=== PATIENT | male | born 1950 | race Two or more races ===

== ENCOUNTER 2023-04-29 08:08 | Inpatient (IN) | payer BC, OTHER ==
[~2023-04-29] VITALS: Ht 172.7 cm; Wt 87.6 kg
[2023-04-29] MEDS ORDERED: GEMF600T90 PO (08:41)
[2023-04-29] MEDS ORDERED: VALS160T2 PO (08:41)
[2023-04-29] MEDS ORDERED: METF-440 PO (08:41)
[2023-04-29] MEDS ORDERED: CEFD300C3 PO (08:41)
[2023-04-29] MEDS ORDERED: AZIT500T4 PO (08:41)
[2023-04-29] MEDS ORDERED: FURO-151 PO (08:41)
[2023-04-29] MEDS ORDERED: METO50TA16 PO (08:41)
[2023-04-29] MEDS ORDERED: ERGO500040 PO (08:41)
[2023-04-29] MEDS ORDERED: AMLO10TA59 PO (08:41)
[2023-04-29] MEDS ORDERED: ASPI81TA31 PO (08:41)
[2023-04-29] MEDS ORDERED: GLIM2TAB31 PO (08:41)
[2023-04-29] MEDS ORDERED: NITROGLYCERIN OINT 1 GM PACKET TP ONE ×2 (08:45→09:11)
[2023-04-29] MEDS ORDERED: FUROSEMIDE 20 MG/2 ML VIAL IVP ONE (08:45)
[2023-04-29] MEDS ORDERED: FUROSEMIDE 40 MG/4 ML VIAL ONE (09:10)
[2023-04-29 09:17] LABS: BASOPHILS # (AUTO) 0.1 K/UL (0.0-0.2); BASOPHILS % (AUTO) 0.9 % (0.0-2.0); EOSINOPHILS # (AUTO) 0.1 K/uL (0.0-0.7); EOSINOPHILS % (AUTO) 1.5 % (0.0-7.0); HEMATOCRIT 30.3 % (36.7-47.1); HEMOGLOBIN 10.4 g/dL (12.5-16.3); LYMPHOCYTES # (AUTO) 0.7 K/uL (0.8-4.8); LYMPHOCYTES % (AUTO) 9.4 % (20.5-51.5); MEAN CORPUSCULAR HEMOGLOBIN 31.6 uug (23.8-33.4); MEAN CORPUSCULAR HGB CONC 34 g/dL (32.5-36.3); MEAN CORPUSCULAR VOLUME 91.9 fL (73.0-96.2); MONOCYTES # (AUTO) 0.7 K/uL (0.1-1.30); MONOCYTES % (AUTO) 9.3 % (0.0-11.0); NEUTROPHILS # (AUTO) 6.1 K/uL (1.8-8.9); NEUTROPHILS % (AUTO) 78.9 % (38.5-71.5); PLATELET COUNT (AUTO) 270 K/uL (152-348); RED CELL DISTRIBUTION WIDTH 14.3 % (12.1-16.2); WHITE BLOOD COUNT (AUTO) 7.7 K/uL (3.6-10.2)
[2023-04-29 09:21] LABS: DIFFERENTIAL COMMENT 1
[2023-04-29 09:49] LABS: CARBON DIOXIDE 26 mmol/L (21-32); CHLORIDE 102 mmol/L (98-107); CREATININE 1.9 mg/dL (0.6-1.3); GLUCOSE 175 mg/dL (74-106); POTASSIUM 4.3 mmol/L (3.5-5.1); SODIUM SERUM 137 mmol/L (136-145); UREA NITROGEN, BLOOD 35 mg/dL (7-18)
[2023-04-29 10:05] LABS: ALANINE AMINOTRANSFERASE 38 U/L (16-63); ALBUMIN 2.7 g/dL (3.4-5.0); ALKALINE PHOSPHATASE 129 U/L (50-136); ASPARTATE AMINOTRANSFERASE 19 U/L (15-37); BILIRUBIN,TOTAL 0.3 mg/dL (0.2-1.0); NT-PRO BNP 8155 pg/mL (0-125); TOTAL PROTEIN, SERUM 7.2 g/dL (6.4-8.2)
[2023-04-29] MEDS ORDERED: hydrALAZINE HCL 20 MG/1 ML VIAL ONE (10:29)
[2023-04-29] MEDS ORDERED: hydrALAZINE HCL 20 MG/1 ML VIAL IV ONE (10:30)
[2023-04-29 10:38] LABS: BILIRUBIN,DIRECT < 0.1 mg/dL (0.0-0.2)
[2023-04-29] MEDS ORDERED: MAGNESIUM HYDROXIDE 30 ML LIQUID UDC PO PRN (11:15)
[2023-04-29] MEDS ORDERED: REMEDY ESSENTIAL ZINC PASTE 113 GM TP PRN (11:15)
[2023-04-29] MEDS ORDERED: ONDANSETRON 4 MG/2 ML VIAL IV PRN (11:15)
[2023-04-29] MEDS ORDERED: ENOXAPARIN SODIUM 40 MG/0.4 ML DISP.SYRIN SQ SCH (11:15)
[2023-04-29] MEDS ORDERED: BUMETANIDE 1 MG/4 ML VIAL IV SCH (11:15)
[2023-04-29] MEDS ORDERED: ACETAMINOPHEN 325 MG TABLET PO PRN (11:15)
[2023-04-29 11:46] LABS: IRON, SERUM 30 ug/dL (50-175)
[2023-04-29] MEDS ORDERED: BUMETANIDE 1 MG/4 ML VIAL ONE (13:03)
[2023-04-29] MEDS ORDERED: METOPROLOL TARTRATE 50 MG TABLET ONE (13:03)
[2023-04-29] MEDS ORDERED: ASPIRIN 81 MG TAB.CHEW ONE (13:03)
[2023-04-29] MEDS ORDERED: ENOXAPARIN SODIUM 40 MG/0.4 ML DISP.SYRIN SQ ONE (13:03)
[2023-04-29] MEDS ORDERED: VALSARTAN 80 MG TABLET ONE (13:04)
[2023-04-29] MEDS ORDERED: AMLODIPINE 5 MG TABLET ONE (13:04)
[2023-04-29] MEDS: ENOXAPARIN SODIUM 40 MG/0.4 ML DISP.SYRIN SQ SCH (13:13)
[2023-04-29] MEDS: BUMETANIDE 1 MG/4 ML VIAL IV SCH ×2 (13:14→20:58)
[2023-04-29] MEDS: METOPROLOL TARTRATE 50 MG TABLET PO SCH ×2 (13:14→17:46)
[2023-04-29] MEDS: VALSARTAN 160 MG TABLET PO SCH (13:14)
[2023-04-29] MEDS: ASPIRIN 81 MG TAB.CHEW PO SCH (13:14)
[2023-04-29] MEDS: AMLODIPINE 10 MG TABLET PO SCH (13:15)
[2023-04-29] MEDS ORDERED: METFORMIN HCL 500 MG TABLET PO SCH (17:00)
[2023-04-29 17:45] VITALS: O2SAT 97
[2023-04-29] MEDS: GEMFIBROZIL 600 MG TABLET PO SCH (17:46)
[2023-04-29 18:13] VITALS: BP 137/74; TEMP 98.7; O2SAT 97
[2023-04-29 18:42] VITALS: BP 137/74; TEMP 98.7; O2SAT 97
[2023-04-29 19:15] VITALS: BP 137/74; TEMP 98.7; O2SAT 97
[2023-04-29 20:33] VITALS: BP 151/66; TEMP 98.9; O2SAT 96
[2023-04-30] VITALS: BP 146/64; TEMP 98.6; O2SAT 93
[2023-04-30 03:41] VITALS: O2SAT 98
[2023-04-30 04:00] VITALS: BP 135/78; TEMP 98.4; O2SAT 95
[2023-04-30 07:27] LABS: BASOPHILS # (AUTO) 0.1 K/UL (0.0-0.2); BASOPHILS % (AUTO) 0.9 % (0.0-2.0); EOSINOPHILS # (AUTO) 0.4 K/uL (0.0-0.7); EOSINOPHILS % (AUTO) 5.5 % (0.0-7.0); HEMATOCRIT 30.4 % (36.7-47.1); HEMOGLOBIN 10.2 g/dL (12.5-16.3); LYMPHOCYTES # (AUTO) 0.8 K/uL (0.8-4.8); LYMPHOCYTES % (AUTO) 11.5 % (20.5-51.5); MEAN CORPUSCULAR HEMOGLOBIN 30.7 uug (23.8-33.4); MEAN CORPUSCULAR HGB CONC 34 g/dL (32.5-36.3); MEAN CORPUSCULAR VOLUME 91.8 fL (73.0-96.2); MONOCYTES # (AUTO) 0.7 K/uL (0.1-1.30); MONOCYTES % (AUTO) 10.1 % (0.0-11.0); NEUTROPHILS # (AUTO) 4.9 K/uL (1.8-8.9); PLATELET COUNT (AUTO) 288 K/uL (152-348); RED BLOOD CELL COUNT(AUTO) 3.31 MIL/uL (4.06-5.63); RED CELL DISTRIBUTION WIDTH 14.3 % (12.1-16.2); WHITE BLOOD COUNT (AUTO) 6.8 K/uL (3.6-10.2)
[2023-04-30 07:35] LABS: DIFFERENTIAL COMMENT 1
[2023-04-30] MEDS ORDERED: CEFEPIME HCL 1 G in IV DEXTROSE 5% 50 ML IV SCH (07:45)
[2023-04-30 07:53] LABS: ALANINE AMINOTRANSFERASE 31 U/L (16-63); ALBUMIN 2.2 g/dL (3.4-5.0); ALKALINE PHOSPHATASE 116 U/L (50-136); ASPARTATE AMINOTRANSFERASE 18 U/L (15-37); BILIRUBIN,TOTAL 0.1 mg/dL (0.2-1.0); CALCIUM 8.9 mg/dL (8.5-10.1); CARBON DIOXIDE 26 mmol/L (21-32); CHLORIDE 102 mmol/L (98-107); CREATININE 1.7 mg/dL (0.6-1.3); GLUCOSE 210 mg/dL (74-106); MAGNESIUM 2.3 mg/dL (1.8-2.4); PHOSPHOROUS 4.2 mg/dL (2.5-4.9); POTASSIUM 4.1 mmol/L (3.5-5.1); SODIUM SERUM 139 mmol/L (136-145); TOTAL PROTEIN, SERUM 6.1 g/dL (6.4-8.2); UREA NITROGEN, BLOOD 38 mg/dL (7-18)
[2023-04-30] MEDS: ASPIRIN 81 MG TAB.CHEW PO SCH (09:01)
[2023-04-30] MEDS: GLIMEPIRIDE 2 MG TABLET PO SCH (09:01)
[2023-04-30] MEDS: GEMFIBROZIL 600 MG TABLET PO SCH ×2 (09:02→16:35)
[2023-04-30] MEDS: AMLODIPINE 10 MG TABLET PO SCH (09:02)
[2023-04-30] MEDS: VALSARTAN 160 MG TABLET PO SCH (09:02)
[2023-04-30] MEDS: METOPROLOL TARTRATE 50 MG TABLET PO SCH ×2 (09:02→16:35)
[2023-04-30] MEDS: ENOXAPARIN SODIUM 40 MG/0.4 ML DISP.SYRIN SQ SCH (09:03)
[2023-04-30] MEDS: CEFEPIME HCL 1 G in IV DEXTROSE 5% 50 ML IV SCH ×2 (09:07→21:02)
[2023-04-30] MEDS: BUMETANIDE 1 MG/4 ML VIAL IV SCH ×2 (09:20→16:35)
[2023-04-30] MEDS ORDERED: VANCOMYCIN IV 1,250 MG in IV DEXTROSE 5% 250 ML IV ONE (10:00)
[2023-04-30 11:25] VITALS: BP 159/70; TEMP 98.8; O2SAT 95
[2023-04-30 16:13] VITALS: BP 165/71; TEMP 98; O2SAT 94
[2023-04-30 20:00] VITALS: BP 160/74; TEMP 98; O2SAT 95
[2023-04-30 20:44] LABS: *BILIRUBIN,URIN NEGATIVE (NEGATIVE); *CLARITY,URINE CLEAR (CLEAR); *COLOR,URINE YELLOW (YELLOW); *KETONES,URINE NEGATIVE (NEGATIVE); *UROBILINOGEN,URINE 0.2 E.U./dl (NORMAL); LEUKOCYTE ESTERASE ,URINE NEGATIVE (NEGATIVE); NITRITE, URINE NEGATIVE (NEGATIVE); PH,URINE 5.5 (5.0-8.0); UGLUCOSE TRACE (NEGATIVE)
[2023-04-30] MEDS ORDERED: ATORVASTATIN 20 MG TABLET PO SCH ×2 (21:00)
[2023-04-30 21:02] LABS: *BLOOD, URINE TRACE (NEGATIVE)
[2023-04-30 21:04] LABS: *PROTEIN,URINE 3+ (NEGATIVE)
[2023-04-30 21:09] LABS: *SODIUM RNDM,URINE 12 mmol/L (40-220)
[2023-04-30 21:12] LABS: *CREATININE,URINE < 13.0 mg/dL (30-125)
[2023-04-30 21:27] LABS: BACTERIA,URINE FEW /HPF (NONE SEEN); COARSE GRANULAR CASTS,URINE 0-3 /LPF; RBC,URINE 0-3 /HPF (0-3); SQUAMOUS EPITHELIAL CELL,UR FEW /HPF (NONE SEEN)
[2023-04-30 21:28] LABS: WBC,URINE 0-3 /HPF (0-3)
[2023-04-30] MEDS ORDERED: hydrALAZINE HCL 10 MG TABLET PO ONE (21:34)
[2023-05-01] VITALS (7 sets, daily range): BP systolic 115–178; BP diastolic 59–79; TEMP 98.2–98.7; O2SAT 90–96
[2023-05-01] MEDS: VALSARTAN 160 MG TABLET PO SCH (04:48)
[2023-05-01 06:41] LABS: BASOPHILS # (AUTO) 0.1 K/UL (0.0-0.2); BASOPHILS % (AUTO) 1.2 % (0.0-2.0); EOSINOPHILS # (AUTO) 0.3 K/uL (0.0-0.7); EOSINOPHILS % (AUTO) 5.5 % (0.0-7.0); HEMATOCRIT 28.7 % (36.7-47.1); HEMOGLOBIN 9.6 g/dL (12.5-16.3); LYMPHOCYTES # (AUTO) 0.7 K/uL (0.8-4.8); MEAN CORPUSCULAR HEMOGLOBIN 30.7 uug (23.8-33.4); MEAN CORPUSCULAR HGB CONC 34 g/dL (32.5-36.3); MEAN CORPUSCULAR VOLUME 91.7 fL (73.0-96.2); MONOCYTES # (AUTO) 0.7 K/uL (0.1-1.30); MONOCYTES % (AUTO) 11.6 % (0.0-11.0); NEUTROPHILS % (AUTO) 69.7 % (38.5-71.5); PLATELET COUNT (AUTO) 309 K/uL (152-348); RED BLOOD CELL COUNT(AUTO) 3.13 MIL/uL (4.06-5.63); RED CELL DISTRIBUTION WIDTH 14.6 % (12.1-16.2); WHITE BLOOD COUNT (AUTO) 5.8 K/uL (3.6-10.2)
[2023-05-01 06:49] LABS: DIFFERENTIAL COMMENT 1
[2023-05-01 06:57] LABS: ALANINE AMINOTRANSFERASE 34 U/L (16-63); ALBUMIN 2.1 g/dL (3.4-5.0); ALKALINE PHOSPHATASE 118 U/L (50-136); ASPARTATE AMINOTRANSFERASE 17 U/L (15-37); BILIRUBIN,TOTAL 0.2 mg/dL (0.2-1.0); CALCIUM 8.6 mg/dL (8.5-10.1); CARBON DIOXIDE 27 mmol/L (21-32); CHLORIDE 102 mmol/L (98-107); CREATINE KINASE, TOTAL 63 U/L (39-308); CREATININE 1.7 mg/dL (0.6-1.3); GLUCOSE 145 mg/dL (74-106); MAGNESIUM 2.3 mg/dL (1.8-2.4); PHOSPHOROUS 4.3 mg/dL (2.5-4.9); POTASSIUM 4.2 mmol/L (3.5-5.1); SODIUM SERUM 139 mmol/L (136-145); UREA NITROGEN, BLOOD 32 mg/dL (7-18); VANCOMYCIN,RANDOM 10.9 ug/mL (20.0-30.0)
[2023-05-01] MEDS ORDERED: VANCOMYCIN IV 1,250 MG in IV DEXTROSE 5% 250 ML IV ONE (08:00)
[2023-05-01] MEDS: ENOXAPARIN SODIUM 40 MG/0.4 ML DISP.SYRIN SQ SCH (08:00)
[2023-05-01] MEDS: GEMFIBROZIL 600 MG TABLET PO SCH ×2 (08:01→16:29)
[2023-05-01] MEDS: CEFEPIME HCL 1 G in IV DEXTROSE 5% 50 ML IV SCH ×2 (08:01→21:21)
[2023-05-01] MEDS: BUMETANIDE 1 MG/4 ML VIAL IV SCH ×2 (08:01→16:29)
[2023-05-01] MEDS: ASPIRIN 81 MG TAB.CHEW PO SCH (08:01)
[2023-05-01] MEDS: GLIMEPIRIDE 2 MG TABLET PO SCH (08:01)
[2023-05-01] MEDS: METOPROLOL TARTRATE 50 MG TABLET PO SCH ×2 (08:10→16:29)
[2023-05-01] MEDS: AMLODIPINE 10 MG TABLET PO SCH (08:10)
[2023-05-01] MEDS ORDERED: ERGO500040 PO (20:39)
[2023-05-02] VITALS (9 sets, daily range): BP systolic 140–189; BP diastolic 55–82; TEMP 98.1–98.5; O2SAT 87–97
[2023-05-02] MEDS ORDERED: hydrALAZINE HCL 20 MG/1 ML VIAL IV PRN (02:00)
[2023-05-02] MEDS: GEMFIBROZIL 600 MG TABLET PO SCH (08:54)
[2023-05-02] MEDS: AMLODIPINE 10 MG TABLET PO SCH (08:54)
[2023-05-02] MEDS: GLIMEPIRIDE 2 MG TABLET PO SCH (08:54)
[2023-05-02] MEDS: VALSARTAN 160 MG TABLET PO SCH (08:54)
[2023-05-02] MEDS: BUMETANIDE 1 MG/4 ML VIAL IV SCH ×2 (08:54→16:56)
[2023-05-02] MEDS: ASPIRIN 81 MG TAB.CHEW PO SCH (08:54)
[2023-05-02] MEDS: ENOXAPARIN SODIUM 40 MG/0.4 ML DISP.SYRIN SQ SCH (08:55)
[2023-05-02 09:02] LABS: BASOPHILS # (AUTO) 0.1 K/UL (0.0-0.2); BASOPHILS % (AUTO) 1.4 % (0.0-2.0); EOSINOPHILS # (AUTO) 0.4 K/uL (0.0-0.7); EOSINOPHILS % (AUTO) 6.3 % (0.0-7.0); HEMATOCRIT 27.9 % (36.7-47.1); HEMOGLOBIN 9.4 g/dL (12.5-16.3); LYMPHOCYTES # (AUTO) 0.8 K/uL (0.8-4.8); MEAN CORPUSCULAR HGB CONC 34 g/dL (32.5-36.3); MEAN CORPUSCULAR VOLUME 92.1 fL (73.0-96.2); MONOCYTES # (AUTO) 0.6 K/uL (0.1-1.30); MONOCYTES % (AUTO) 10.6 % (0.0-11.0); NEUTROPHILS % (AUTO) 68.7 % (38.5-71.5); PLATELET COUNT (AUTO) 316 K/uL (152-348); RED BLOOD CELL COUNT(AUTO) 3.03 MIL/uL (4.06-5.63); RED CELL DISTRIBUTION WIDTH 14.1 % (12.1-16.2); WHITE BLOOD COUNT (AUTO) 5.8 K/uL (3.6-10.2)
[2023-05-02 09:06] LABS: DIFFERENTIAL COMMENT 1
[2023-05-02 09:08] LABS: CALCIUM 8.7 mg/dL (8.5-10.1); CARBON DIOXIDE 26 mmol/L (21-32); CHLORIDE 104 mmol/L (98-107); CREATININE 1.6 mg/dL (0.6-1.3); GLUCOSE 155 mg/dL (74-106); MAGNESIUM 2.2 mg/dL (1.8-2.4); POTASSIUM 4.2 mmol/L (3.5-5.1); SODIUM SERUM 138 mmol/L (136-145); UREA NITROGEN, BLOOD 29 mg/dL (7-18)
[2023-05-02] MEDS: CARVEDILOL 25 MG TABLET PO SCH ×2 (09:08→17:00)
[2023-05-02] MEDS: hydrALAZINE HCL 50 MG TABLET PO SCH ×2 (09:08→21:08)
[2023-05-02] MEDS: CEFEPIME HCL 1 G in IV DEXTROSE 5% 50 ML IV SCH ×2 (09:08→21:09)
[2023-05-02] MEDS ORDERED: VANCOMYCIN IV 1,250 MG in IV DEXTROSE 5% 250 ML IV ONE (10:00)
[2023-05-02] MEDS ORDERED: ATORVASTATIN 20 MG TABLET PO SCH (21:00)
[2023-05-03 00:14] VITALS: BP 151/65; TEMP 98.9; O2SAT 95
[2023-05-03 05:32] LABS: *OCCULT BLOOD STOOL NEGATIVE (NEGATIVE)
[2023-05-03 13:06] LABS: A/G RATIO 0.6 (0.7-1.7); ALPHA-1-GLOBULIN 0.3 g/dL (0.0-0.4); ALPHA-2-GLOBULIN 0.9 g/dL (0.4-1.0); BETA GLOBULIN 1.3 g/dL (0.7-1.3); GAMMA GLOBULIN 0.9 g/dL (0.4-1.8); GLOBULIN, TOTAL 3.4 g/dL (2.2-3.9); M-SPIKE Not Observed g/dL (Not Observed)
[2023-05-03 16:06] LABS: PTH, INTACT 33 pg/mL (15-65)
== END 2023-05-03 01:22 | disposition short-term general hospital (02) | DRG 280 ==
LOC: ER 08:08 → TRANSITION 12:20 → TELE3 16:50
PROVIDERS: ADMIT Internal Medicine; ATTEND Internal Medicine
DX: I13.0 Hypertensive heart and chronic kidney disease with heart failure and stage 1 through stage 4 chronic kidney disease, or unspecified chronic kidney disease (principal); I50.33 Acute on chronic diastolic (congestive) heart failure; I21.A1 Myocardial infarction type 2; J96.01 Acute respiratory failure with hypoxia; N17.0 Acute kidney failure with tubular necrosis; I16.9 Hypertensive crisis, unspecified; I69.354 Hemiplegia and hemiparesis following cerebral infarction affecting left non-dominant side; Z87.01 Personal history of pneumonia (recurrent); E78.5 Hyperlipidemia, unspecified; I25.2 Old myocardial infarction; I25.10 Atherosclerotic heart disease of native coronary artery without angina pectoris; D63.8 Anemia in other chronic diseases classified elsewhere; N18.30 Chronic kidney disease, stage 3 unspecified; Z79.84 Long term (current) use of oral hypoglycemic drugs; Z79.899 Other long term (current) drug therapy; Z79.82 Long term (current) use of aspirin; I49.3 Ventricular premature depolarization; E11.22 Type 2 diabetes mellitus with diabetic chronic kidney disease
CPT/HCPCS: 36415; 71045; 76770; 83550; 83605; 83735; 83970; 84100; 84155; 84165; 84300; 84484; 85025; 85730; 87040; 87798; 93005; 93307; A4606; A4663; G0378; J0360; J0692; J1650; J1940; J3490; J7050